=== PATIENT | female | born 1945 | race African-American/Black ===

== ENCOUNTER 2024-08-09 18:55 | Observation (INO) | payer OTHER ==
[2024-08-09 20:39] LABS: VENOUS O2 SATURATION 77.8 % (70-80); VENOUS PCO2 50.9 mmHg (38-52); VENOUS PH 7.422 (7.310-7.410)
[2024-08-09 20:44] LABS: ABSOLUTE IMMATURE GRANULOCYTES 0.02 x10^3/uL (0.0-0.031); BASOPHILS # 0.04 x10^3/uL (0.01-0.08); EOSINOPHIL % 1.8 % (0.7-5.8); EOSINOPHILS # 0.15 x10^3/uL (0.04-0.36); HEMOGLOBIN 9.1 g/dL (11.2-15.7); MCHC 32.5 g/dl (32.2-35.5); MEAN CELL VOLUME 82.6 fl (79.4-94.8); MEAN PLT VOLUME 10.3 fl (9.4-12.3); MONOCYTE # 1.27 x10^3/uL (0.24-0.86); MONOCYTE % 15.5 % (4.7-12.5); PLATELET COUNT 170 x10^3/uL (182-369); RDW 15.8 % (12.5-17.0)
[2024-08-09 20:47] LABS: INR 1.1 (0.83-1.09); PROTHROMBIN TIME (PATIENT) 12.1 SEC (9.7-13.0)
[2024-08-09 21:02] LABS: POTASSIUM 5.5 mmol/L (3.5-5.1)
[2024-08-09 21:04] LABS: CALCIUM 9.1 mg/dL (8.5-10.1)
[2024-08-09 21:05] LABS: ALBUMIN 2.8 g/dl (3.4-5.0); BLOOD UREA NITROGEN 75.3 mg/dL (7-18); MAGNESIUM 1.9 mg/dL (1.8-2.4)
[2024-08-09 21:08] LABS: CREATININE 4.8 mg/dL (0.55-1.3); PHOSPHOROUS 4.2 mg/dL (2.5-4.9)
[2024-08-09 21:09] LABS: BILIRUBIN,TOTAL 0.4 mg/dL (0.2-1); TOT PROT 6.6 g/dl (6.4-8.2)
[2024-08-09] MEDS ORDERED: SODIUM ZIRCONIUM CYCLOSILICATE (LOKELMA) 10 GM PACKET ONE (22:54)
[2024-08-09] MEDS: SODIUM ZIRCONIUM CYCLOSILICATE (LOKELMA) 5 GM PACKET PO ONE (23:00)
[2024-08-10] MEDS: INSULIN REGULAR HUMAN 100 UNITS/ML *VIAL IVPUSH ONE (02:05)
[2024-08-10] MEDS: DEXTROSE 50%-WATER 25 GM/50 ML DISP.SYRIN IVPUSH ONE (02:05)
[2024-08-10] MEDS: SODIUM ZIRCONIUM CYCLOSILICATE (LOKELMA) 5 GM PACKET PO ONE (02:26)
[2024-08-10 08:33] LABS: ABSOLUTE IMMATURE GRANULOCYTES 0.04 x10^3/uL (0.0-0.031); BASOPHILS # 0.02 x10^3/uL (0.01-0.08); EOSINOPHIL % 2.7 % (0.7-5.8); EOSINOPHILS # 0.19 x10^3/uL (0.04-0.36); HEMATOCRIT 30.5 % (34.1-44.9); HEMOGLOBIN 9.7 g/dL (11.2-15.7); MCHC 31.8 g/dl (32.2-35.5); MEAN CELL VOLUME 83.3 fl (79.4-94.8); MEAN PLT VOLUME 11.1 fl (9.4-12.3); MONOCYTE # 1.09 x10^3/uL (0.24-0.86); MONOCYTE % 15.3 % (4.7-12.5); PLATELET COUNT 183 x10^3/uL (182-369); RDW 15.8 % (12.5-17.0)
[2024-08-10 08:55] LABS: ALBUMIN 2.8 g/dl (3.4-5.0); BLOOD UREA NITROGEN 78.7 mg/dL (7-18)
[2024-08-10 08:56] LABS: MAGNESIUM 2.1 mg/dL (1.8-2.4)
[2024-08-10 08:59] LABS: CREATININE 4.7 mg/dL (0.55-1.3); PHOSPHOROUS 4.5 mg/dL (2.5-4.9)
[2024-08-10 09:00] LABS: BILIRUBIN,TOTAL 0.7 mg/dL (0.2-1); TOT PROT 6.6 g/dl (6.4-8.2)
[2024-08-10] MEDS: HEPARIN NA (PORCINE) 5,000 UNITS/ML 1ML VIAL SQ SCH (09:06)
[2024-08-10] MEDS: ACETAMINOPHEN 500 MG TABLET (FP) PO PRN (09:06)
[2024-08-10] MEDS ORDERED: SODIUM ZIRCONIUM CYCLOSILICATE (LOKELMA) 5 GM PACKET PO SCH (10:00)
[2024-08-10] MEDS ORDERED: SODIUM CHLORIDE 250 ML IV PRN (10:54)
[2024-08-10 11:03] VITALS: BMI 29.4
[2024-08-10] MEDS: EPOETIN ALFA-EPBX 3,000 UNIT/ML VIAL SQ ONE (14:10)
[2024-08-10] MEDS: LIDOCAINE 5% TOPICAL PATCH TP SCH (14:36)
[2024-08-10] MEDS: INSULIN ASPART SLIDING SCALE (NOVOLOG) 1 VIAL SQ SCH (17:12)
[2024-08-10] MEDS: GABAPENTIN 100 MG CAPSULE PO ONE (17:13)
[2024-08-10 18:43] LABS: HEPATITIS B SURF AG NON-MATERN NON-REACTIVE (NONREACTIVE)
[2024-08-10 19:12] LABS: HCV DIAGNOSTIC IN-HOUSE W/RFLX NON-REACTIVE (NONREACTIVE)
[2024-08-10] MEDS: LIDOCAINE PATCH REMOVAL MC SCH (22:07)
[2024-08-10] MEDS ORDERED: SODIUM ZIRCONIUM CYCLOSILICATE (LOKELMA) 5 GM PACKET PO ONE (22:45)
[2024-08-11 09:57] LABS: ABSOLUTE IMMATURE GRANULOCYTES 0.03 x10^3/uL (0.0-0.031); BASOPHILS # 0.04 x10^3/uL (0.01-0.08); EOSINOPHIL % 3.6 % (0.7-5.8); EOSINOPHILS # 0.26 x10^3/uL (0.04-0.36); HEMATOCRIT 31.6 % (34.1-44.9); MCHC 31.6 g/dl (32.2-35.5); MEAN CELL VOLUME 85.9 fl (79.4-94.8); MEAN PLT VOLUME 11.2 fl (9.4-12.3); MONOCYTE % 16.5 % (4.7-12.5); PLATELET COUNT 166 x10^3/uL (182-369); RDW 16.8 % (12.5-17.0)
[2024-08-11 10:20] LABS: POTASSIUM 5.7 mmol/L (3.5-5.1)
[2024-08-11 10:34] LABS: ALBUMIN 2.5 g/dl (3.4-5.0); CALCIUM 8.8 mg/dL (8.5-10.1)
[2024-08-11 10:35] LABS: MAGNESIUM 1.9 mg/dL (1.8-2.4)
[2024-08-11 10:38] LABS: CREATININE 3.3 mg/dL (0.55-1.3); PHOSPHOROUS 4.5 mg/dL (2.5-4.9)
[2024-08-11 10:39] LABS: BILIRUBIN,TOTAL 0.6 mg/dL (0.2-1); TOT PROT 6.5 g/dl (6.4-8.2)
[2024-08-11 10:41] LABS: BLOOD UREA NITROGEN 39.1 mg/dL (7-18)
[2024-08-11] MEDS: LIDOCAINE 5% TOPICAL PATCH TP SCH (10:55)
[2024-08-11] MEDS ORDERED: SODIUM CHLORIDE 250 ML IV PRN (13:15)
[2024-08-11] MEDS: SODIUM ZIRCONIUM CYCLOSILICATE (LOKELMA) 5 GM PACKET PO SCH (13:45)
[2024-08-11] MEDS: CARVEDILOL 3.125 MG TABLET (FP) PO SCH (21:41)
[2024-08-11] MEDS: LIDOCAINE PATCH REMOVAL MC SCH (21:41)
[2024-08-12 09:08] LABS: INR 1.14 (0.83-1.09); PROTHROMBIN TIME (PATIENT) 12.4 SEC (9.7-13.0)
[2024-08-12 09:10] LABS: HEMOGLOBIN 9.5 g/dL (11.2-15.7); MCHC 31.7 g/dl (32.2-35.5); MEAN CELL VOLUME 84.5 fl (79.4-94.8); MEAN PLT VOLUME 10.4 fl (9.4-12.3); PLATELET COUNT 168 x10^3/uL (182-369); RDW 15.9 % (12.5-17.0)
[2024-08-12 09:32] LABS: POTASSIUM 5.3 mmol/L (3.5-5.1)
[2024-08-12 09:35] LABS: BLOOD UREA NITROGEN 52.2 mg/dL (7-18); MAGNESIUM 1.7 mg/dL (1.8-2.4)
[2024-08-12 09:38] LABS: CREATININE 3.9 mg/dL (0.55-1.3)
[2024-08-12 09:39] LABS: PHOSPHOROUS 5.2 mg/dL (2.5-4.9)
[2024-08-12] MEDS: HEPARIN NA (PORCINE) 5,000 UNITS/ML 1ML VIAL SQ ONE ×3 (10:15)
[2024-08-12] MEDS: MAGNESIUM 2GM/50ML STERILE WATER IVPB IVPB ONE (12:56)
[2024-08-12] MEDS ORDERED: HEPARIN NA (PORCINE) 5,000 UNITS/ML 1ML VIAL ONE (13:31)
[2024-08-12] MEDS ORDERED: LIDOCAINE HCL 1%, 10 MG/ML (20ML VIAL) ONE (13:31)
[2024-08-12] MEDS ORDERED: DEXMEDETOMIDINE HCL 200 MCG/2 ML IVPB ONE (13:54)
[2024-08-12] MEDS ORDERED: PROPOFOL 20 ML ONE (13:56)
[2024-08-12] MEDS ORDERED: LIDOCAINE HCL/PF 2% SDV 5ML VIAL ONE (13:56)
[2024-08-12] MEDS ORDERED: MIDAZOLAM HCL 2 MG/2 ML SINGLE DOSE VIAL ONE (13:57)
[2024-08-12] MEDS ORDERED: methylPREDNISolone NA SUCC 125 MG/2 ML VIAL ONE ×2 (14:52→14:55)
[2024-08-12] MEDS: ceFAZolin SODIUM 1 GM VIAL IVPB ONE (14:58)
[2024-08-12] MEDS: LIDOCAINE HCL 1%, 10 MG/ML (20ML VIAL) INF ONE (15:05)
[2024-08-12] MEDS: LIDOCAINE HCL 1%, 10 MG/ML (20ML VIAL) NR ONE ×2 (15:05)
[2024-08-12] MEDS ORDERED: PHENYLEPHRINE HCL 10 MG/1 ML SINGLE DOSE VIAL ONE (15:18)
[2024-08-12] MEDS ORDERED: ACETAMINOPHEN 500 MG TABLET (FP) PO PRN (16:43)
[2024-08-12] MEDS ORDERED: ACETAMINOPHEN WITH CODEINE 300MG/30MG TABLET PO PRN (16:43)
[2024-08-12] MEDS ORDERED: ONDANSETRON 4 MG/2 ML VIAL IVPUSH PRN (16:55)
[2024-08-12] MEDS: LACTATED RINGERS SOLUTION 1,000 ML IV SCH (17:38)
[2024-08-12] MEDS: CARVEDILOL 3.125 MG TABLET (FP) PO SCH (21:11)
[2024-08-12] MEDS: INSULIN ASPART SLIDING SCALE (NOVOLOG) 1 VIAL SQ SCH (21:11)
[2024-08-12] MEDS: LIDOCAINE PATCH REMOVAL MC SCH (21:12)
[2024-08-13 09:51] LABS: HEMATOCRIT 28.5 % (34.1-44.9); MCHC 31.6 g/dl (32.2-35.5); MEAN CELL VOLUME 84.3 fl (79.4-94.8); MEAN PLT VOLUME 10.5 fl (9.4-12.3); PLATELET COUNT 149 x10^3/uL (182-369); RDW 16.3 % (12.5-17.0)
[2024-08-13] MEDS: SODIUM ZIRCONIUM CYCLOSILICATE (LOKELMA) 5 GM PACKET PO SCH (09:53)
[2024-08-13] MEDS: LIDOCAINE 5% TOPICAL PATCH TP SCH (10:01)
[2024-08-13 10:15] LABS: POTASSIUM 4.8 mmol/L (3.5-5.1)
[2024-08-13 10:19] LABS: CALCIUM 8.8 mg/dL (8.5-10.1)
[2024-08-13 10:21] LABS: ALBUMIN 2.5 g/dl (3.4-5.0); BLOOD UREA NITROGEN 39.5 mg/dL (7-18); MAGNESIUM 2.5 mg/dL (1.8-2.4)
[2024-08-13 10:24] LABS: CREATININE 3.4 mg/dL (0.55-1.3); PHOSPHOROUS 5.8 mg/dL (2.5-4.9)
[2024-08-13 10:25] LABS: BILIRUBIN,TOTAL 0.3 mg/dL (0.2-1); TOT PROT 6.3 g/dl (6.4-8.2)
[2024-08-13 16:07] VITALS: BP 118/49; PULSE 74; RESP 16; TEMP 98.6
== END 2024-08-13 17:40 | disposition home or self-care (01) ==
LOC: JER 18:55 → JERBED 22:20 → INTOOBSV 22:20 → J5S 08-10 01:06
PROVIDERS: ADMIT Hospitalist
PROC: 3E0337Z Introduction of Electrolytic and Water Balance Substance into Peripheral Vein, Percutaneous Approach (ICD-10-PCS; 2024-08-09)
PROC: 3E023GC Introduction of Other Therapeutic Substance into Muscle, Percutaneous Approach (ICD-10-PCS; 2024-08-09)
PROC: 3E023GC Introduction of Other Therapeutic Substance into Muscle, Percutaneous Approach (ICD-10-PCS; 2024-08-09)
PROC: 3E033VG Introduction of Insulin into Peripheral Vein, Percutaneous Approach (ICD-10-PCS; 2024-08-09)
PROC: 3E033GC Introduction of Other Therapeutic Substance into Peripheral Vein, Percutaneous Approach (ICD-10-PCS; 2024-08-09)
PROC: 06HY33Z Insertion of Infusion Device into Lower Vein, Percutaneous Approach (ICD-10-PCS; principal; 2024-08-10)
PROC: 05C73ZZ Extirpation of Matter from Right Axillary Vein, Percutaneous Approach (ICD-10-PCS; 2024-08-12)
DX: T82.868A Thrombosis due to vascular prosthetic devices, implants and grafts, initial encounter (principal); I13.2 Hypertensive heart and chronic kidney disease with heart failure and with stage 5 chronic kidney disease, or end stage renal disease; Z99.2 Dependence on renal dialysis; Z85.528 Personal history of other malignant neoplasm of kidney; G89.29 Other chronic pain; M19.90 Unspecified osteoarthritis, unspecified site; X58.XXXA Exposure to other specified factors, initial encounter; Z91.013 Allergy to seafood; Z91.010 Allergy to peanuts; Z91.041 Radiographic dye allergy status; Z88.8 Allergy status to other drugs, medicaments and biological substances; Z90.5 Acquired absence of kidney; E87.5 Hyperkalemia
CPT/HCPCS: 0241U-QW; 36415; 71045-TC-FY; 76000-TC-FY; 80048; 80053; 82803; 82962; 83735; 84100; 84484; 85025; 85027; 85610; 85730; 86704; 86803; 86850; 86900; 86901; 87340; 87517; 93005; 93010; 94760; 96361; 96372; 96374; 96375; 97116-GP; 97161-GP; 99285-25; C1757; C1769; G0378; J1644; Q5106